=== PATIENT | female | born 1960 | race Caucasian/White ===

== ENCOUNTER 2016-10-22 11:08 | Emergency (ER) | payer OTHER ==
--- NOTE | 2016-10-22 12:40 | UC ---
Lower Extremity/Ankle HPI - HPI Summary HPI Summary: Pushed off with left foot playing tennis yesterday pain and bruising near 2,3,4 mtp joints---hurts to wb - History of Current Complaint Chief Complaint: UCLowerExtremity Stated Complaint: FOOT INJURY Time Seen by Provider: 10/22/16 12:32 Hx Obtained From: Patient ?: No Onset/Duration: Sudden Onset, Lasting Days - 1, Still Present Severity Initially: Moderate Severity Currently: Moderate Pain Intensity: 5 Pain Scale Used: 0-10 Numeric Aggravating Factor(s): Standing, Ambulation Alleviating Factor(s): Rest, Elevation Able to Bear Weight: Yes - Allergies/Home Medications Allergies/Adverse Reactions: Allergies Allergy/AdvReac Type Severity Reaction Status Date / Time No Known Allergies Allergy Verified 10/22/16 12:33 Home Medications: Home Medications Lisinopril [Zestril 20 MG-] 20 mg PO DAILY 10/22/16 [History Confirmed 10/22/16] PMH/Surg Hx/FS Hx/Imm Hx Previously Healthy: Yes Cardiovascular History: Hypertension - Surgical History Surgical History: Yes Surgery Procedure, Year, and Place: . LEFT ARM FRACTURE. RT BUNION SURGERY. STEROTACTIC BIOPSY LEFT BREAST - Family History Known Family History: Positive: None - Social History Occupation: Employed Full-time Lives: With Family Alcohol Use: Daily Substance Use Type: None Smoking Status (MU): Never Smoked Tobacco Review of Systems Constitutional: Negative Skin: Negative Eyes: Negative ENT: Negative Respiratory: Negative Cardiovascular: Negative Gastrointestinal: Negative Genitourinary: Negative Motor: Negative Neurovascular: Negative Musculoskeletal: Arthralgia - left foot 2,3,4 mtp joint pain/bruising Neurological: Negative Psychological: Negative All Other Systems Reviewed And Are Negative: Yes Physical Exam Triage Information Reviewed: Yes Appearance: Well-Appearing, Well-Nourished, Pain Distress Vital Signs: Initial Vital Signs Temp 99.5 F 10/22/16 12:27 Pulse 65 10/22/16 12:27 Resp 18 10/22/16 12:27 BP 141/59 10/22/16 12:27 Pulse Ox 98 10/22/16 12:27 Vital Signs Reviewed: Yes Eye Exam: Normal Eyes: Positive: Conjunctiva Clear ENT Exam: Normal ENT: Positive: Normal ENT inspection, Hearing grossly normal. Negative: Nasal congestion, Nasal drainage, Trismus, Muffled/hoarse voice Dental Exam: Normal Neck exam: Normal Neck: Positive: Supple, Nontender Respiratory Exam: Normal Respiratory: Positive: Chest non-tender, No respiratory distress, No accessory muscle use Cardiovascular Exam: Normal Cardiovascular: Positive: RRR, Pulses Normal, Brisk Capillary Refill Musculoskeletal Exam: Normal Musculoskeletal: Positive: Strength Intact, ROM Intact, No Edema Neurological Exam: Normal Neurological: Positive: Alert, Muscle Tone Normal Psychological Exam: Normal Skin Exam: Normal Diagnostics - Radiology No standard instances Xray Interpretation: Positive (See Comments) - soft tissue swelling plantar surface of distal foot Radiology Interpretation Completed By: Radiologist Lower Extremity Course/Dx - Course Course Of Treatment: ibuprofen, rest, cam boot, rice, crutches follow with Dr. Lange and Kavita - Differential Dx/Diagnosis Differential Diagnosis/HQI/PQRI: Contusion, Fracture (Closed), Sprain, Strain Provider Diagnoses: Left foot contusion, Blood pressure elevated due to pain Discharge - Discharge Plan Condition: Stable Disposition: HOME Prescriptions: Ibuprofen TAB* [Motrin TAB* 600 MG] 600 mg PO Q6H PRN #30 tab PRN Reason: pain Patient Education Materials: Ibuprofen (By mouth), Crutch Instructions (ED), Foot Contusion (ED), DASH Eating Plan (ED), Hypertension (ED) Referrals: Polina Walls MD [Primary Care Provider] - 1 Week Denisha Lange MD [Medical Doctor] - 3 Days
--- NOTE | 2016-10-22 13:21 | RAD ---
Indication: Second, third, and fourth metatarsal phalangeal joint region pain and bruising following injury to the bottom of the foot yesterday. Comparison: No relevant prior exams available on the [facility] for comparison. Technique: AP, lateral, and oblique views LEFT foot. Report: Negative for fracture or malalignment. Mild osteophytosis and joint space narrowing at the first metatarsal phalangeal joint with overlying soft tissue swelling. Mild soft tissue swelling along the plantar aspect of the hind and midfoot. IMPRESSION: Plantar soft tissue swelling. Negative for fracture or malalignment.
[2016-10-22 14:00] VITALS: BP 121/65
== END 2016-10-22 13:50 | disposition home or self-care (01) ==
LOC: UCEAST 11:08
DX: S90.32XA Contusion of left foot, initial encounter (principal); Y93.59 Activity, other involving other sports and athletics played individually; Y93.73 Activity, racquet and hand sports
CPT/HCPCS: 99213; G0463